=== PATIENT | female | born 1995 | race Caucasian/White ===

== ENCOUNTER 2024-09-05 15:33 | Emergency (ER) | payer BC ==
[~2024-09-05] VITALS: Ht 172.7 cm; Wt 61.2 kg
[2024-09-05 18:17] VITALS: BP 119/64; TEMP 98; O2SAT 100
== END 2024-09-05 18:18 | disposition admitted as inpatient to this hospital (09) ==
LOC: ER 15:33
DX: S60.011A Contusion of right thumb without damage to nail, initial encounter (principal); M79.644 Pain in right finger(s); W23.0XXA Caught, crushed, jammed, or pinched between moving objects, initial encounter; Y93.89 Activity, other specified; Y92.89 Other specified places as the place of occurrence of the external cause; Y99.8 Other external cause status
CPT/HCPCS: 73140-TC